=== PATIENT | female | born 1995 | race African-American/Black ===

== ENCOUNTER 2025-01-21 10:55 | Outpatient (CLI) | payer BC, SELFPAY ==
--- NOTE | ~2025-01-21 | US_ITS ---
EXAMINATION: US OB <= 14 weeks fetus DATE: 01/21/2025 11:47 CDT INDICATION: Dating COMPARISON: None TECHNIQUE: Real-time transabdominal obstetric ultrasound. FINDINGS: 2 para 1 Estimated date of delivery by last menstrual period is 08/29/2025 The uterus measures 10.9 x 5.2 x 5.0 cm. A gestational sac is identified within the uterus. A pole is identified, with a crown-rump length that measures 2.03 cm, corresponding to an appro ximate gestational age of 8 weeks and 4 days. cardiac activity is identified at a rate of 173 bpm. Despite prolonged interrogation, the bilateral ovaries were not visualized Estimated date of delivery by ultrasound is 08/29/2025 IMPRESSION: Single intrauterine gestation with an approximate gestational age of 8 weeks and 4 days, with c ardiac activity identified. Reviewed, dictated and finalized at location A. IMPRESSION: Single intrauterine gestation with an approximate gestational age of 8 weeks an d 4 days, with cardiac activity identified.
== END 2025-01-21 10:56 | disposition home or self-care (01) ==
PROVIDERS: PCP Nurse Practitioner Family; Visit Provider Nurse Practitioner Family
DX: Z32.01 Encounter for pregnancy test, result positive (principal)
CPT/HCPCS: 76801

== ENCOUNTER 2025-04-01 10:25 | Outpatient (CLI) | payer BC, SELFPAY ==
--- NOTE | ~2025-04-01 | US_ITS ---
EXAMINATION: US OB /maternal detail DATE: 04/01/2025 11:07 INDICATION: anatomy scan TECHNIQUE: Multiple obstetric sonographic images performed. FINDINGS: There is a single living fetus in variable presentation. Placenta previa with caudal margin of the anterior placenta extending posteriorly across the region of the internal cervical os. Normal cervical length of 4.1 cm. Amniotic fluid volume is subjectively normal. heart rate of 133 beats per minute. The following anatomy was identified as normal: Ventricles, choroid plexus, falx and cava septum pellucidum Cerebellum and cisterna magna Nuchal fold Upper lip Spine Diaphragm Stomach Kidneys Bladder 3 vessel cord and cord insertion Bilateral upper and lower extremities including hands and feet Normal four-chamber heart view. The left and right ventricular outflow tract views are nondiagnostic. The following biometric data were obtained: BPD: 4.3 cm -> 18 weeks 6 days Head circumference: 16.2 cm -> 19 weeks 0 days Abdominal circumference: 13.9 cm -> 19 weeks 2 days Femur length: 2.9 cm -> 18 weeks 6 days These measurements are concordant. Head circumference to abdominal circumference ratio: 1.16 (normal range 1.09-1.26). Estimated weight: 272 g (+/-) 41 g. or 10 oz. (+/-) 1 oz. IMPRESSION: 1. Single living fetus with variable presentation with heart rate of 133 bpm. 2. Estimated weight is 76th percentile by Hadlock criteria when 08/29/2025 is used as the SILVIA. Please correlate with clinical information or earlier ultrasounds for most accurate SILVIA. 3. Normal four-chamber heart view but with nondiagnostic left and right ventricular outflow tract views. Otherwise normal survey. 4. Placenta previa with caudal margin of the anterior placenta extending across the internal cervical os. Reviewed, dictated and finalized at location A. IMPRESSION: 1. Single living fetus with variable presentation with heart rate of 133 bpm. 2. Estimated weight is 76th percentile by Hadlock criteria when 08/29/2025 is used as the SILVIA. Please correlate with clinical information or earlier ultr asounds for most accurate SILVIA. 3. Normal four-chamber heart view but with nondiagnostic left and right ventric ular outflow tract views. Otherwise normal survey. 4. Placenta previa with caudal margin of the anterior placenta extending across the internal cervical os.
== END 2025-04-01 10:26 | disposition home or self-care (01) ==
LOC: MICIMG 10:26
PROVIDERS: PCP Nurse Practitioner Family; Visit Provider Nurse Practitioner Family
DX: Z34.82 Encounter for supervision of other normal pregnancy, second trimester (principal); Z3A.00 Weeks of gestation of pregnancy not specified
CPT/HCPCS: 76805